=== PATIENT | female | born 1990 | race Caucasian/White ===

== ENCOUNTER 2016-06-17 06:49 | Emergency (ER) | payer SELFPAY ==
[~2016-06-17] VITALS: Ht 167.6 cm; Wt 100.0 kg
[2016-06-17] MEDS ORDERED: CIMETIDINE400 M1 PO (07:04)
[2016-06-17] MEDS ORDERED: PREDNISONE10 MG PO (07:04)
[2016-06-17] MEDS ORDERED: BENADRYL 50MG C50 MG PO (07:04)
[2016-06-17 07:34] VITALS: BP 127/62
== END 2016-06-17 07:30 | disposition home or self-care (01) | DRG 607 ==
LOC: ED 06:49
DX: L50.0 Allergic urticaria (principal); R50.9 Fever, unspecified

== ENCOUNTER 2024-04-29 15:20 | Emergency (ER) | payer SELFPAY ==
[~2024-04-29] VITALS: Ht 167.6 cm; Wt 92.0 kg
[2024-04-29] VITALS (7 sets, daily range): BP systolic 142–159; BP diastolic 99–110
[~2024-04-29 15:20] MED LIST: BENADRYL 50MG C50 MG PO; CIMETIDINE400 M1 PO; PREDNISONE10 MG PO
[2024-04-29] MEDS ORDERED: amLODIPine BESYLATE 5 MG/TAB PO ONE (16:25)
[2024-04-29 16:28] LABS: BASO% 0.3 % (0-3); EOS% 0.3 % (0-8); HEMATOCRIT 44.3 % (37.0-47.0); HEMOGLOBIN 14.9 g/dl (12.0-16.0); IMMATURE GRANULOCYTES 0.1 % (0.0-5.0); LYMPH% 12.6 % (15-41); MEAN CELL VOLUME 84.5 fL CALC (80.0-100.0); MEAN CORPUSCULAR HGB 28.4 pG CALC (26.0-32.0); MEAN CORPUSCULAR HGB CONC 33.6 g/dL CAL (32.0-36.0); MONO% 3.2 % (2-13); NEUT# 9.89 thou/uL (2.00-7.15); NEUT% 83.5 % (42-76); RED BLOOD COUNT 5.24 mill/uL (4.20-5.60)
[2024-04-29 16:45] LABS: ALBUMIN 4.3 g/dL (3.2-5.0); ALKALINE PHOSPHATASE 69 u/l (38-126); ANION GAP 12 (6-22 (CALC)); BILIRUBIN, TOTAL 0.6 mg/dL (0.02-1.3); BUN 12 mg/dL (7-17); BUN/CREATININE RATIO 18 (12-20 (CALC)); CARBON DIOXIDE 26 mmol/l (22-30); CHLORIDE 105 mmol/l (95-108); CREATININE 0.7 mg/dL (0.5-1.0); ESTIMATED GFR 117 ML/MIN (>=90 (CALC)); POTASSIUM 4.2 mmol/l (3.5-5.1); SGOT/AST 25 u/l (14-36); SODIUM 139 mmol/l (137-146); TOTAL PROTEIN 7.2 g/dL (6.3-8.2)
[2024-04-29] MEDS ORDERED: HYZAAR1 TAB PO (17:49)
== END 2024-04-29 18:19 | disposition home or self-care (01) | DRG 305 ==
LOC: ED 15:20
PROVIDERS: Nurse Practitioner
DX: I10 Essential (primary) hypertension (principal)